=== PATIENT | female | born 1965 | race Caucasian/White ===

== ENCOUNTER → 2020-02-16 | Outpatient (CLI) | payer BC ==
[~2020-02-16] MED LIST: BACTRIM DS 8001 TA1 PO
== END | disposition home or self-care (01) ==
LOC: COVID19 15:43
PROVIDERS: ATTEND Social Worker Clinical
DX: U07.1 COVID-19 (principal)

== ENCOUNTER 2022-09-15 12:16 | Emergency (ER) | payer BC ==
[~2022-09-15] VITALS: Ht 177.8 cm; Wt 61.2 kg
[2022-09-15 13:06] LABS: HEMATOCRIT 41.4 % (37.0-47.0); MEAN CELL VOLUME 87.5 fl (81.0-99.0); MEAN CORPUSCULAR HGB CONC 33.1 g/dl (33.0-37.0); MEAN PLATELET VOLUME 8.9 fl (9.6-12.3); PLATELET COUNT AUTOMATED 694 10*3/uL (130-400); RED BLOOD COUNT 4.73 10*6/uL (4.10-5.10); RED CELL DISTRI WIDTH 16.9 % (0-14.5); WHITE BLOOD COUNT 24.1 10*3/uL (4.8-10.8)
[2022-09-15 13:07] LABS: MANUAL DIFF REFLEX YES
[2022-09-15 13:35] LABS: BASOPHILS 1 % (0-1); TOTAL CELLS COUNTED 100 #CELLS
[2022-09-15 13:36] LABS: BURR CELLS MODERATE; OVALOCYTES FEW; PLATELET SUFFICIENCY HIGH (NORMAL); POLYCHROMASIA SLIGHT; ROULEAUX SLIGHT; TARGET CELLS FEW; TOXIC GRANULATION SLIGHT; VACUOLATION OF NEUTROPHILS SLIGHT
[2022-09-15 13:56] LABS: ALKALINE PHOSPHATASE 163 U/L (46-116); CHLORIDE 101 mmol/L (98-107); TOTAL PROTEIN 7.9 gm/dL (6.0-8.0)
[2022-09-15 14:01] LABS: BUN < 5 mg/dl (9-23); SGPT/ALT < 7 U/L (10-49)
[2022-09-15 16:33] LABS: BILIRUBIN Negative (Negative); BLOOD Negative (Negative); CLARITY Clear (Clear); COLOR Yellow (Yellow); GLUCOSE Negative (Negative); KETONE Negative (Negative); LEUKO ESTERASE Negative (Negative); NITRITE Negative (Negative)
[2022-09-15 16:44] LABS: BACTERIA TRACE; RBC 0-2 rbc/hpf (0-2); WBC 0-2 wbc/hpf (0-5)
[2022-09-15 19:44] VITALS: BP 168/86
== END 2022-09-15 19:45 ==
LOC: ED 12:16
PROVIDERS: Nurse Practitioner Family
DX: K57.20 Diverticulitis of large intestine with perforation and abscess without bleeding (principal); Z88.0 Allergy status to penicillin